=== PATIENT | female | born 1990 | race Caucasian/White ===

== ENCOUNTER → 2017-01-23 | Outpatient (CLI) | payer OTHER ==
--- NOTE | 2017-01-27 14:03 | HM ---
Patient was monitored for 24 hours. The baseline rhythm is sinus mechanism with normal conduction. The average rate 88 beats per minute, minimal is 61, maximum 131 beats per minute. Ventricular ectopic activity was present in the form or rate single PVC's. Supraventricular ectopic activity was present in the form of rare single PAC's symptoms are shortness of breath and sharp pain in the chest. Did not correlate with any dysrhythmia. CONCLUSION; 1. Sinus mechanism based on rhythm. 2. Rare ventricular ectopic activity. 3. Rare supraventricular ectopic activity. 4. Symptoms do not correlate with any dysrhythmia. MTDD
== END | disposition home or self-care (01) ==
LOC: RADECHMAIN 13:02
PROVIDERS: ATTEND Family Medicine
DX: I49.3 Ventricular premature depolarization (principal)
CPT/HCPCS: 93225; 93226

== ENCOUNTER 2017-06-28 07:13 | Emergency (ER) | payer OTHER ==
[2017-06-28] MEDS ORDERED: DEXAMETHASONE SOD PHOSPHATE 10 MG/ML 1 ML VIAL IM STA (07:40)
[2017-06-28] MEDS ORDERED: ALBUTEROL NEBULIZED 2.5 MG/3 ML INHALATION STA (07:40)
[2017-06-28] MEDS ORDERED: KETOROLAC 30 MG/ML 1 ML VIAL IM STA (07:40)
--- NOTE | 2017-06-28 07:44 | ED ---
General Adult HPI - General Chief complaint: ENT Stated complaint: Ear pain Time Seen by Provider: 06/28/17 07:31 Source: patient, RN notes reviewed Mode of arrival: ambulatory Limitations: no limitations - History of Present Illness Initial comments: 27-year-old female with past medical history of asthma presents for evaluation of sore throat, and left ear pain. Patient has had URI symptoms over the past week, over the past 24 hours she developed severe sore throat and left ear pain as well as pain with swallowing. 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 She states she has had no issues with this over the past 5 years. She also reports cough which is productive, and mild wheezing secondary to her asthma. Denies any abdominal pain nausea vomiting or diarrhea. Denies any dysuria. - Related Data Home Medications Medication Instructions Recorded Confirmed ALPRAZolam [Xanax] 1 mg PO BID 05/10/15 06/28/17 Dextroamphetamine/Amphetamine 20 mg PO TID 05/10/15 06/28/17 [Adderall] Albuterol Nebulized [Ventolin 2.5 mg INHALATION RT-Q4H PRN 06/28/17 06/28/17 Nebulized] Albuterol Nebulized [Ventolin 2.5 mg INHALATION RT-Q6H PRN 06/28/17 06/28/17 Nebulized] Cholecalciferol [Vitamin D3] 1,000 unit PO DAILY 06/28/17 06/28/17 Ranitidine HCl [Zantac] 150 mg PO DAILY PRN 06/28/17 06/28/17 Previous Rx's Medication Instructions Recorded Amoxic-Pot Clav 875-125Mg 1 tab PO Q12HR #20 tablet 06/28/17 [Augmentin 875-125] Ibuprofen [Motrin] 600 mg PO Q8HR PRN #24 tab 06/28/17 Allergies Allergy/AdvReac Type Severity Reaction Status Date / Time No Known Allergies Allergy Verified 06/28/17 07:50 Review of Systems ROS Statement: Those systems with pertinent positive or pertinent negative responses have been documented in the HPI. ROS Other: All systems not noted in ROS Statement are negative. Past Medical History Past Medical History: Asthma Additional Past Medical History / Comment(s): "juv. 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" History of Any Multi-Drug Resistant Organisms: None Reported Past Surgical History: Ear Surgery, Orthopedic Surgery Additional Past Surgical History / Comment(s): thumb surgery at age 12, ear surgery 2 years ago, right shoulder Past Anesthesia/Blood Transfusion Reactions: No Reported Reaction Past Psychological History: Anxiety Smoking Status: Current every day smoker Past Alcohol Use History: None Reported Past Drug Use History: None Reported - Past Family History Mother Family Medical History: Cancer General Exam Limitations: no limitations General appearance: alert, in no apparent distress Head exam: Present: atraumatic, normocephalic Eye exam: Present: normal appearance, PERRL ENT exam: Present: mucous membranes moist, normal external ear exam, other ( Pharyngeal erythema, symmetric tonsillar pillars, right tympanic membrane is opacified and bulging, left tympanic membrane erythematous with no cone of light.) Neck exam: Present: normal inspection, full ROM, lymphadenopathy. Absent: meningismus Respiratory exam: Present: wheezes. Absent: respiratory distress Cardiovascular Exam: Present: regular rate, normal rhythm GI/Abdominal exam: Present: soft. Absent: distended, tenderness Extremities exam: Present: normal inspection, normal capillary refill. Absent: pedal edema Back exam: Present: normal inspection, full ROM Neurological exam: Present: alert, oriented X3, CN II-XII intact. Absent: motor sensory deficit Psychiatric exam: Present: normal affect, normal mood Skin exam: Present: warm, dry, intact. Absent: cyanosis, diaphoretic Course Vital Signs 06/28/17 06/28/17 06/28/17 07:18 07:53 08:03 Temperature 97.6 F Pulse Rate 99 80 84 Respiratory 18 Rate Blood Pressure 123/91 O2 Sat by Pulse 98 Oximetry Medical Decision Making - Medical Decision Making 27-year-old female with URI symptoms and sore throat and left ear pain. On examination patient has an opacified and bulging right tympanic membrane with no symptoms and this year. On the left she has erythematous irregular contour to her tympanic membrane. She has had surgery to remove benign mass proximally 5 years ago. Patient has history of asthma and is wheezing on exam. She is given Decadron, Toradol, and albuterol in the emergency department. On reevaluation, she is feeling much better, pain improved, breathing improved. Rapid strep test is negative, influenza negative Chest x-ray negative for focal pneumonia Diagnosis: URI, asthma exacerbation, otitis media - Lab Data Lab Results 06/28/17 06/28/17 Range/Units 07:50 07:50 Influenza Type A RNA Not Detected (Not Detectd) Influenza Type B (PCR) Not Detected (Not Detectd) Group A Strep Rapid Negative (Negative) Disposition Clinical Impression: Acute viral pharyngitis, Otitis media, Asthma Disposition: HOME SELF-CARE Condition: Good Instructions: Earache (ED) Prescriptions: Amoxic-Pot Clav 875-125Mg [Augmentin 875-125] 1 tab PO Q12HR #20 tablet Ibuprofen [Motrin] 600 mg PO Q8HR PRN #24 tab PRN Reason: Pain Referrals: Alfa Ford III, MD [Primary Care Provider] - 1-2 days
--- NOTE | 2017-06-28 08:44 | XR ---
EXAMINATION TYPE: XR chest 2V DATE OF EXAM: 06/28/2017 COMPARISON: 05/10/2015 INDICATION: Pain TECHNIQUE: Frontal and lateral views of the chest are obtained. FINDINGS: The heart size is normal. The pulmonary vasculature is normal. The lungs are clear. IMPRESSION: 1. No acute pulmonary process.
[2017-06-28 16:28] VITALS: BP 132/76; PULSE 84; RESP 18; TEMP 98.1
== END 2017-06-28 08:53 | disposition home or self-care (01) ==
LOC: EC 07:13
DX: J02.9 Acute pharyngitis, unspecified (principal); J45.909 Unspecified asthma, uncomplicated; H66.92 Otitis media, unspecified, left ear; F41.9 Anxiety disorder, unspecified; F17.200 Nicotine dependence, unspecified, uncomplicated; Z79.899 Other long term (current) drug therapy; Z86.018 Personal history of other benign neoplasm
CPT/HCPCS: 99283 ×2; 96372 ×3; 94640; 87081; 87430; 87502; 71046; J1100; J1885

== ENCOUNTER 2018-09-08 21:26 | Emergency (ER) | payer OTHER ==
[2018-09-08 21:32] VITALS: TEMP 98.9
[2018-09-08] MEDS ORDERED: SULFAMETH-TMP DS STARTER PACK 2 TAB BTL PO STA (22:33)
[2018-09-08] MEDS ORDERED: LIDOCAINE 1% INJ 10MG/ML (20 ML MDV) SQ ONE (22:33)
--- NOTE | 2018-09-08 22:36 | ED ---
Skin/Abscess/FB HPI - General Chief complaint: Skin/Abscess/Foreign Body Stated complaint: Abscess Time Seen by Provider: 09/08/18 21:55 Source: patient, RN notes reviewed, old records reviewed Mode of arrival: ambulatory Limitations: no limitations - History of Present Illness Initial comments: Patient is a 28 year old female with history of hydranitis suppuritiva, with complaint of L breast abscess and R axilla abscess for one week. She usually pops them on her own. She denies any other complaints. Denies fevers or chills. - Related Data Home Medications Medication Instructions Recorded Confirmed ALPRAZolam [Xanax] 1 mg PO BID 05/10/15 06/28/17 Dextroamphetamine/Amphetamine 20 mg PO TID 05/10/15 06/28/17 [Adderall] Albuterol Nebulized [Ventolin 2.5 mg INHALATION RT-Q4H PRN 06/28/17 06/28/17 Nebulized] Albuterol Nebulized [Ventolin 2.5 mg INHALATION RT-Q6H PRN 06/28/17 06/28/17 Nebulized] Cholecalciferol [Vitamin D3] 1,000 unit PO DAILY 06/28/17 06/28/17 Ranitidine HCl [Zantac] 150 mg PO DAILY PRN 06/28/17 06/28/17 Previous Rx's Medication Instructions Recorded Amoxic-Pot Clav 875-125Mg 1 tab PO Q12HR #20 tablet 06/28/17 [Augmentin 875-125] Ibuprofen [Motrin] 600 mg PO Q8HR PRN #24 tab 06/28/17 Sulfamethox-Tmp 800-160Mg [Bactrim 2 tab PO Q12HR #40 tab 09/08/18 DS 800-160 mg] Allergies Allergy/AdvReac Type Severity Reaction Status Date / Time No Known Allergies Allergy Verified 09/08/18 21:32 Review of Systems ROS Statement: Those systems with pertinent positive or pertinent negative responses have been documented in the HPI. ROS Other: All systems not noted in ROS Statement are negative. Past Medical History Past Medical History: Asthma Additional Past Medical History / Comment(s): "juv. 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" History of Any Multi-Drug Resistant Organisms: None Reported Past Surgical History: Ear Surgery, Orthopedic Surgery Additional Past Surgical History / Comment(s): thumb surgery at age 12, ear surgery 2 years ago, right shoulder Past Anesthesia/Blood Transfusion Reactions: No Reported Reaction Past Psychological History: Anxiety Smoking Status: Current every day smoker Past Alcohol Use History: None Reported Past Drug Use History: Marijuana - Past Family History Mother Family Medical History: Cancer General Exam - General Exam Comments Initial Comments: 28 year old female, no distress. Limitations: no limitations General appearance: alert, in no apparent distress Head exam: Present: atraumatic, normocephalic, normal inspection Eye exam: Present: normal appearance, PERRL, EOMI. Absent: scleral icterus, conjunctival injection, periorbital swelling ENT exam: Present: normal exam, mucous membranes moist Neck exam: Present: normal inspection. Absent: tenderness, meningismus, lymphadenopathy Respiratory exam: Present: normal lung sounds bilaterally. Absent: respiratory distress, wheezes, rales, rhonchi, stridor Cardiovascular Exam: Present: regular rate, normal rhythm, normal heart sounds. Absent: systolic murmur, diastolic murmur, rubs, gallop, clicks Neurological exam: Present: alert, oriented X3, CN II-XII intact Psychiatric exam: Present: normal affect, normal mood Skin exam: Present: warm, dry, intact, normal color, rash (Lbreast abscess measuring 3 cm. Surrounding erythema . R axilla 2cm abscess. ) Course Vital Signs 09/08/18 09/08/18 21:30 23:24 Temperature 98.9 F Pulse Rate 115 H 98 Respiratory 20 18 Rate Blood Pressure 134/80 129/89 O2 Sat by Pulse 97 98 Oximetry Procedures - Incision & Drainage Indication: abscess Site: other (L breast) Size (cm): 3 Anesthetic Used: lidocaine 1% Amount (mLs): 4 I&D Cleaning Method: Chloroprep Sterile Field Used?: Yes Scalpel Used: #11 I&D Drainage Obtained: Pus, Blood Culture Obtained?: Yes Patient Tolerated Procedure: well, no complications Medical Decision Making - Medical Decision Making Pt is a 28 year old female with hydranitis suppuritiva with left breast and R axilla abscess with surrounding cellulitis. Patient had incision and drainage, culture obtained. Patient tolerated procedule well. Will DC with Rx for Bactrim DS. Discussed dermatology follow up. Disposition Clinical Impression: Left breast abscess, Hydradenitis Disposition: HOME SELF-CARE Condition: Good Instructions (If sedation given, give patient instructions): Abscess Incision and Drainage (ED) Additional Instructions: Patient is advised to take antibiotic as prescribed. Leave the packing in the wound for 48 hours. Return to emergency department if any alarming signs or symptoms occur. Prescriptions: Sulfamethox-Tmp 800-160Mg [Bactrim DS 800-160 mg] 2 tab PO Q12HR #40 tab Is patient prescribed a controlled substance at d/c from ED?: No Referrals: Alfa Ford III, MD [Primary Care Provider] - 1-2 days Time of Disposition: 22:35
[2018-09-08 23:25] VITALS: BP 129/89; PULSE 98; RESP 18
== END 2018-09-08 23:24 | disposition home or self-care (01) ==
LOC: EC 21:26
DX: N61.1 Abscess of the breast and nipple (principal); L73.2 Hidradenitis suppurativa; L02.411 Cutaneous abscess of right axilla; L03.111 Cellulitis of right axilla; F17.200 Nicotine dependence, unspecified, uncomplicated; F41.9 Anxiety disorder, unspecified; J45.909 Unspecified asthma, uncomplicated; Z79.899 Other long term (current) drug therapy
CPT/HCPCS: 87070; 87205; 99283; 10160; J2001

== ENCOUNTER → 2018-10-28 | Outpatient (CLI) | payer OTHER ==
--- NOTE | 2018-10-28 10:53 | FL ---
ESOPHOGRAM. HISTORY: Dysphagia Esophagram was performed per the air contrast technique. The patient swallowed barium and effervesce nt crystals without difficulty or delay. Esophageal peristalsis and motility appear to be within normal limits. There is no evidence for filling defect, mass or diverticulum. No hiatal hernia seen. Subsequently single contrast cervical esophagram was performed which fails demonstrate evidence for a spiration penetration or mass. Cervical spine demonstrates reversal of the normal cervical lordosis. IMPRESSION: 1. Unremarkable evaluation of the esophagus. 2. Reversal of the normal cervical lordosis may reflect muscle spasticity.
== END | disposition home or self-care (01) ==
LOC: RADFLWHC 10:04
PROVIDERS: ATTEND Family Medicine
DX: R13.10 Dysphagia, unspecified (principal)
CPT/HCPCS: 74220

== ENCOUNTER 2018-11-07 23:45 | Emergency (ER) | payer OTHER ==
[2018-11-07 23:54] VITALS: BP 118/77; PULSE 96; RESP 20
[2018-11-08] MEDS ORDERED: LIDOCAINE 1% INJ 10MG/ML (20 ML MDV) SQ STA (00:12)
--- NOTE | 2018-11-08 00:14 | ED ---
General Adult HPI - General Chief complaint: Skin/Abscess/Foreign Body Stated complaint: Abscess L Arm Time Seen by Provider: 11/08/18 00:00 Source: patient, RN notes reviewed, old records reviewed Mode of arrival: ambulatory Limitations: no limitations - History of Present Illness Initial comments: 28-year-old female patient past medical history of hidradenitis suppurvia presents to ED with abscess to left axilla. Patient reports that this is an ongoing for approximately 2 days. Patient denies any constitutional symptoms. Denies any nausea vomiting diarrhea, fevers or chills. Patient has a chest pain shortness with abdominal pain. Patient states that she is not . Denies any other complaints at this time. Systemic: Pt denies fatigue, myalgia, fever/chills, rash. Pt denies weakness, night sweats, weight loss. Neuro: Pt denies headache, visual disturbances, syncope or pre-syncope. HEENT: Pt denies ocular discharge or irritation, otalgia, rhinorrhea, pharyngitis or notable lymphadenopathy. Cardiopulmonary: Pt denies chest pain, SOB, heart palpitations, dyspnea on exertion. Abdominal/GI: Pt denies abdominal pain, n/v/d. : Pt denies dysuria, burning w/ urination, frequency/urgency. Denies new onset urinary or bowel incontinence. MSK: Pt denies myalgia, loss of strength or function in extremities. Neuro: Pt denies new onset weakness, paresthesias. - Related Data Home Medications Medication Instructions Recorded Confirmed ALPRAZolam [Xanax] 1 mg PO BID 05/10/15 06/28/17 Dextroamphetamine/Amphetamine 20 mg PO TID 05/10/15 06/28/17 [Adderall] Albuterol Nebulized [Ventolin 2.5 mg INHALATION RT-Q4H PRN 06/28/17 06/28/17 Nebulized] Albuterol Nebulized [Ventolin 2.5 mg INHALATION RT-Q6H PRN 06/28/17 06/28/17 Nebulized] Cholecalciferol [Vitamin D3] 1,000 unit PO DAILY 06/28/17 06/28/17 Ranitidine HCl [Zantac] 150 mg PO DAILY PRN 06/28/17 06/28/17 Previous Rx's Medication Instructions Recorded Amoxic-Pot Clav 875-125Mg 1 tab PO Q12HR #20 tablet 06/28/17 [Augmentin 875-125] Ibuprofen [Motrin] 600 mg PO Q8HR PRN #24 tab 06/28/17 Sulfamethox-Tmp 800-160Mg [Bactrim 2 tab PO Q12HR #40 tab 09/08/18 DS 800-160 mg] Sulfamethox-Tmp 800-160Mg [Bactrim 1 tab PO Q12HR #20 tab 11/08/18 DS 800-160 mg] Allergies Allergy/AdvReac Type Severity Reaction Status Date / Time No Known Allergies Allergy Verified 11/07/18 23:53 Review of Systems ROS Statement: Those systems with pertinent positive or pertinent negative responses have been documented in the HPI. ROS Other: All systems not noted in ROS Statement are negative. Past Medical History Past Medical History: Asthma Additional Past Medical History / Comment(s): "juv. 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" HS. History of Any Multi-Drug Resistant Organisms: None Reported Past Surgical History: Ear Surgery, Orthopedic Surgery Additional Past Surgical History / Comment(s): thumb surgery at age 12, ear surgery 2 years ago, right shoulder Past Anesthesia/Blood Transfusion Reactions: No Reported Reaction Past Psychological History: Anxiety Smoking Status: Current every day smoker Past Alcohol Use History: None Reported Past Drug Use History: Marijuana - Past Family History Mother Family Medical History: Cancer General Exam - General Exam Comments Initial Comments: Constitutional: NAD, AOX3, Pt has pleasant affect. HEENT: NC/AT, trachea midline, neck supple, no lymphadenopathy. Posterior pharynx non erythematous, without exudates. External ears appear normal, without discharge. Mucous membranes moist. Eyes PERRLA, EOM intact. There is no scleral icterus. No pallor noted. Cardiopulmonary: RRR, no murmurs, rubs or gallops, no JVD noted. Lungs CTAB in anterior and posterior hsu. No peripheral edema. Abdominal exam: Abdomen soft and non-distended. Abdomen non-tender to palpation in all 4 quadrants. Bowel sounds active in LLQ. No hepatosplenomegaly. No ecchymosis Neuro: CN II-XII grossly intact. No nuchal rigidity. MSK: 2 x 2 centimeter abscess noted left axilla, mildly erythematous. No streaking. All motor functions. Incision drainage obtained mild amount of pus and blood. No posterior calf tenderness bilaterally, homans sign negative bilaterally. Posterior tibialis and radial pulse +2 bilaterally. Sensation intact in upper and lower extremities. Full active ROM in upper and lower extremities, 5/5 stregnth. Limitations: no limitations Course Vital Signs 11/07/18 11/08/18 23:51 00:31 Temperature 99.5 F 97.4 F L Pulse Rate 96 Respiratory 20 Rate Blood Pressure 118/77 O2 Sat by Pulse 99 Oximetry Medical Decision Making - Medical Decision Making 28-year-old female patient past medical history of hidradenitis suppurvia presents to ED with abscess to left axilla. Patient reports that this is an ongoing for approximately 2 days. Patient denies any constitutional symptoms. Denies any nausea vomiting diarrhea, fevers or chills. Patient has a chest pain shortness with abdominal pain. Patient states that she is not . Denies any other complaints at this time. Physical exam displayed: 2 x 2 centimeter abscess noted left axilla, mildly erythematous. No streaking. Mild amount of fluctuance. Incision drainage obtained mild amount of pus and blood. Culture obtained. Patient discharged with Bactrim. Patient to follow up with primary care provider in 2 days. Patient return to ER if condition worsens. Case discussed with Dr. Ontiveros. Disposition Clinical Impression: Abscess Disposition: HOME SELF-CARE Condition: Stable Instructions (If sedation given, give patient instructions): Abscess (ED) Additional Instructions: Patient to adhere to previously discussed treatment plan and will take medication(s) as directed. Patient to follow up with PCP in 1-2 days. Patient to return to ED if symptoms do not improve. Take medication as prescribed. Follow up with primary care provider 1-2 days. Return to ER if condition worsens. Prescriptions: Sulfamethox-Tmp 800-160Mg [Bactrim DS 800-160 mg] 1 tab PO Q12HR #20 tab Is patient prescribed a controlled substance at d/c from ED?: No Referrals: Alfa Ford III, MD [Primary Care Provider] - 1-2 days
[2018-11-08 00:31] VITALS: TEMP 97.4
--- NOTE | 2018-11-09 01:36 | CDI ---
Documentation Clarification OP Dear Dino FORREST, PAC, Please provide the addendum for the Incision & drianage procedure. Thank you, Shannon Mo User Experience Researcher If you have any question, Please contact manager content at [phone] [facility]
--- NOTE | 2018-11-14 14:17 | ED ---
Disposition Clinical Impression: Abscess Disposition: HOME SELF-CARE Condition: Stable Instructions (If sedation given, give patient instructions): Abscess (ED) Additional Instructions: Patient to adhere to previously discussed treatment plan and will take medication(s) as directed. Patient to follow up with PCP in 1-2 days. Patient to return to ED if symptoms do not improve. Take medication as prescribed. Follow up with primary care provider 1-2 days. Return to ER if condition worsens. Prescriptions: Sulfamethox-Tmp 800-160Mg [Bactrim DS 800-160 mg] 1 tab PO Q12HR #20 tab Is patient prescribed a controlled substance at d/c from ED?: No Referrals: Alfa Ford III, MD [Primary Care Provider] - 1-2 days Procedures - Incision & Drainage Consent Obtained: verbal consent Indication: abscess L axillae Site: other (L axillae) Size (cm): 2 Anesthetic Used: lidocaine 1% Amount (mLs): 2 I&D Cleaning Method: Chloroprep, Alcohol Wipe Scalpel Used: #11 I&D Drainage Obtained: Pus, Blood Culture Obtained?: Yes Patient Tolerated Procedure: well
== END 2018-11-08 01:03 | disposition home or self-care (01) ==
LOC: EC 23:45
DX: L02.412 Cutaneous abscess of left axilla (principal); J45.909 Unspecified asthma, uncomplicated; F41.9 Anxiety disorder, unspecified; F17.200 Nicotine dependence, unspecified, uncomplicated; Z79.899 Other long term (current) drug therapy
CPT/HCPCS: 87070; 87205; 87077; 87186; 99283; 10060; J2001

== ENCOUNTER 2019-05-30 00:13 | Emergency (ER) | payer OTHER ==
[2019-05-30 00:19] VITALS: BP 136/88; PULSE 101; RESP 20; TEMP 98.3
--- NOTE | 2019-05-30 00:29 | ED ---
Skin/Abscess/FB HPI - General Chief complaint: Skin/Abscess/Foreign Body Stated complaint: Thigh Abscess Time Seen by Provider: 05/30/19 00:20 Source: patient, family Mode of arrival: ambulatory Limitations: no limitations - History of Present Illness Initial comments: 29-year-old female patient presents to the emergency department today for evaluation of right labial abscess. Patient has history of hidradenitis suppurativa and gets abscesses frequently. Patient states that this abscess developed a few days ago. States that she did get minimal drainage at this morning. States it has decreased in size. Patient states she was mostly worried due to the location of the abscess. She denies fever or chills. Denies significant pain to the area. Denies any nausea or vomiting. She has been taking warm baths with Epsom salts which seems to be helping. Patient denies any recent rash, shortness of breath, chest pain, abdominal pain, diarrhea, co nstipation, back pain, numbness, tingling, dizziness, weakness, hematuria, dysuria, urinary urgency, urinary frequency, headache, visual changes, or any other complaints. - Related Data Home Medications Medication Instructions Recorded Confirmed ALPRAZolam [Xanax] 1 mg PO BID 05/10/15 06/28/17 Dextroamphetamine/Amphetamine 20 mg PO TID 05/10/15 06/28/17 [Adderall] Albuterol Nebulized [Ventolin 2.5 mg INHALATION RT-Q4H PRN 06/28/17 06/28/17 Nebulized] Albuterol Nebulized [Ventolin 2.5 mg INHALATION RT-Q6H PRN 06/28/17 06/28/17 Nebulized] Cholecalciferol [Vitamin D3] 1,000 unit PO DAILY 06/28/17 06/28/17 Ranitidine HCl [Zantac] 150 mg PO DAILY PRN 06/28/17 06/28/17 Previous Rx's Medication Instructions Recorded Amoxic-Pot Clav 875-125Mg 1 tab PO Q12HR #20 tablet 06/28/17 [Augmentin 875-125] Ibuprofen [Motrin] 600 mg PO Q8HR PRN #24 tab 06/28/17 Sulfamethox-Tmp 800-160Mg [Bactrim 2 tab PO Q12HR #40 tab 09/08/18 DS 800-160 mg] Sulfamethox-Tmp 800-160Mg [Bactrim 1 tab PO Q12HR #20 tab 11/08/18 DS 800-160 mg] Sulfamethoxazole/Trimethoprim 1 each PO BID #20 tablet 05/30/19 [Bactrim DS 800-160 mg] Allergies Allergy/AdvReac Type Severity Reaction Status Date / Time No Known Allergies Allergy Verified 05/30/19 00:19 Review of Systems ROS Statement: Those systems with pertinent positive or pertinent negative responses have been documented in the HPI. ROS Other: All systems not noted in ROS Statement are negative. Past Medical History Past Medical History: Asthma Additional Past Medical History / Comment(s): 12-18" HS. History of Any Multi-Drug Resistant Organisms: None Reported Past Surgical History: Ear Surgery, Orthopedic Surgery Additional Past Surgical History / Comment(s): thumb surgery at age 12, ear surgery 2 years ago Past Anesthesia/Blood Transfusion Reactions: No Reported Reaction Past Psychological History: ADD/ADHD, Anxiety Smoking Status: Current every day smoker Past Alcohol Use History: None Reported Past Drug Use History: Marijuana - Past Family History Mother Family Medical History: Cancer General Exam Limitations: no limitations General appearance: alert, in no apparent distress, other (This is a well- developed, well-nourished adult female patient in no acute distress. Vital signs upon presentation are temperature 98.3F, pulse 101, respirations 20, blood pressure 136/88, pulse ox 97% on room air.) Respiratory exam: Present: normal lung sounds bilaterally. Absent: respiratory distress, wheezes, rales, rhonchi, stridor Cardiovascular Exam: Present: regular rate, normal rhythm, normal heart sounds. Absent: systolic murmur, diastolic murmur, rubs, gallop, clicks External exam: Present: other (There is less than 1 cm abscess noted to the right labia. This is indurated with no fluctuance. No surrounding erythema. No current drainage.). Absent: normal external exam Course Vital Signs 05/30/19 00:15 Temperature 98.3 F Pulse Rate 101 H Respiratory 20 Rate Blood Pressure 136/88 O2 Sat by Pulse 97 Oximetry Medical Decision Making - Medical Decision Making 29-year-old female patient with history of hidradenitis suppurativa presents to the emergency department today for evaluation of right labial abscess. Physical examination did reveal a less than 1 cm abscess to the right labia. This is indurated with no fluctuance. No current drainage. There is no surrounding erythema or evidence for cellulitis. Patient is nontender to the area. Patient was mostly concerned related to the location of the abscess. She will be discharged with instructions to continue applying warm compresses and taking warm baths. I will prescribe Bactrim that she is to use if the area seems to becoming larger or more red. She is instructed to follow-up with her primary care physician for recheck in 1-2 days. Return parameters were discussed in detail. She verbalizes understanding and agrees with this plan. Disposition Clinical Impression: Labial abscess Disposition: HOME SELF-CARE Condition: Good Instructions (If sedation given, give patient instructions): Abscess (ED) Additional Instructions: Continue applying warm compresses or taking warm sits past 15 minutes at a time at least 4 times daily. Follow-up with your primary care physician for recheck in 1-2 days. Start antibiotic if area seems to worsen. Return to the emergency department immediately for any new, worsening, or concerning symptoms Prescriptions: Sulfamethoxazole/Trimethoprim [Bactrim DS 800-160 mg] 1 each PO BID #20 tablet Is patient prescribed a controlled substance at d/c from ED?: No Referrals: Alfa Ford III, MD [Primary Care Provider] - 1-2 days Time of Disposition: 00:29
== END 2019-05-30 00:34 | disposition home or self-care (01) ==
LOC: EC 00:13
DX: N76.4 Abscess of vulva (principal); J45.909 Unspecified asthma, uncomplicated; F41.9 Anxiety disorder, unspecified; F90.9 Attention-deficit hyperactivity disorder, unspecified type; F17.200 Nicotine dependence, unspecified, uncomplicated; Z79.899 Other long term (current) drug therapy; Z87.2 Personal history of diseases of the skin and subcutaneous tissue
CPT/HCPCS: 99283

== ENCOUNTER 2019-06-19 14:37 | Emergency (ER) | payer OTHER ==
[2019-06-19 14:52] VITALS: BP 149/97; PULSE 103; RESP 20; TEMP 97.2
--- NOTE | 2019-06-19 15:23 | ED ---
General Adult HPI - General Chief complaint: Neuro Symptoms/Deficit Stated complaint: Facial numbness Time Seen by Provider: 06/19/19 14:56 Source: patient Mode of arrival: wheelchair Limitations: no limitations - History of Present Illness Initial comments: Dictation was produced using [employer] dictation software. please excuse any grammatical, word or spelling errors. Chief Complaint: 29-year-old female presents with left sided facial numbness. History of Present Illness: 29 old female she presents today with left-sided facial numbness. Patient states her symptoms began 2 days ago. She reports that she has weakness of the left facial muscles as well. She states that the numbness is of her entire left face. She also feels some numbness in the left half of her mouth. Patient is concerned about a stroke came to the emergency department for evaluation. She has history of ear surgeries as well. The ROS documented in this emergency department record has been reviewed and confirmed by me. Those systems with pertinent positive or negative responses have been documented in the HPI. All other systems are other negative and/or noncontributory. PHYSICAL EXAM: General Impression: Alert and oriented x3, not in acute distress HEENT: Normocephalic atraumatic, extra-ocular movements intact, pupils equal and reactive to light bilaterally, mucous membranes moist. Cardiovascular: Heart regular rate and rhythm, S1&S2 audible, no murmurs, rubs or gallops Chest: Lungs clear to auscultation bilaterally, no rhonchi, no wheeze, no rales Abdomen: Bowel sounds present, abdomen soft, non-tender, non-distended, no organomegaly Musculoskeletal: Pulses present and equal in all extremities, no peripheral edema Motor: no focal deficits noted Neurological: Weakness to the periorbital muscles. Left-sided facial droop, mild numbness to light touch of the left face Skin: Intact with no visualized rashes Psych: Normal affect and mood ED course: 29 yo presents with clinical presentation consistent with Morales palsy. Upon arrival are within acceptable limits. - Related Data Home Medications Medication Instructions Recorded Confirmed ALPRAZolam [Xanax] 1 mg PO BID 05/10/15 06/28/17 Dextroamphetamine/Amphetamine 20 mg PO TID 05/10/15 06/28/17 [Adderall] Albuterol Nebulized [Ventolin 2.5 mg INHALATION RT-Q4H PRN 06/28/17 06/28/17 Nebulized] Albuterol Nebulized [Ventolin 2.5 mg INHALATION RT-Q6H PRN 06/28/17 06/28/17 Nebulized] Cholecalciferol [Vitamin D3] 1,000 unit PO DAILY 06/28/17 06/28/17 Ranitidine HCl [Zantac] 150 mg PO DAILY PRN 06/28/17 06/28/17 Previous Rx's Medication Instructions Recorded Amoxic-Pot Clav 875-125Mg 1 tab PO Q12HR #20 tablet 06/28/17 [Augmentin 875-125] Ibuprofen [Motrin] 600 mg PO Q8HR PRN #24 tab 06/28/17 Sulfamethox-Tmp 800-160Mg [Bactrim 2 tab PO Q12HR #40 tab 09/08/18 DS 800-160 mg] Sulfamethox-Tmp 800-160Mg [Bactrim 1 tab PO Q12HR #20 tab 11/08/18 DS 800-160 mg] Sulfamethoxazole/Trimethoprim 1 each PO BID #20 tablet 05/30/19 [Bactrim DS 800-160 mg] Artificial Tears Ointment 1 gm OPHTHALMIC DAILY #1 oint...g. 06/19/19 [Lubrifresh Pm Ointment] Artificial Tears-Hypromellose 1 drops LEFT EYE QID #1 bottle 06/19/19 [Artificial Tear Drops] predniSONE 60 mg PO DAILY 7 Days #21 tab 06/19/19 valACYclovir HCL [Valtrex] 1,000 mg PO TID 7 Days #7 tablet 06/19/19 Allergies Allergy/AdvReac Type Severity Reaction Status Date / Time No Known Allergies Allergy Verified 05/30/19 00:19 Review of Systems ROS Statement: Those systems with pertinent positive or pertinent negative responses have been documented in the HPI. ROS Other: All systems not noted in ROS Statement are negative. 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 History of Any Multi-Drug Resistant Organisms: None Reported Past Surgical History: Ear Surgery, Orthopedic Surgery Additional Past Surgical History / Comment(s): thumb surgery Past Anesthesia/Blood Transfusion Reactions: No Reported Reaction Past Psychological History: ADD/ADHD, Anxiety Smoking Status: Current every day smoker Past Alcohol Use History: None Reported Past Drug Use History: Marijuana - Past Family History Mother Family Medical History: Cancer General Exam Limitations: no limitations Course Vital Signs 06/19/19 14:47 Temperature 97.2 F L Pulse Rate 103 H Respiratory 20 Rate Blood Pressure 149/97 O2 Sat by Pulse 99 Oximetry Medical Decision Making - Lab Data Result diagrams: 06/19/19 16:00 06/19/19 16:00 Lab Results 06/19/19 06/19/19 Range/Units 16:00 16:00 WBC 10.8 H (3.8-10.6) k/uL RBC 5.02 (3.80-5.40) m/uL Hgb 14.7 (11.4-16.0) gm/dL Hct 44.0 (34.0-46.0) % MCV 87.7 (80.0-100.0) fL MCH 29.3 (25.0-35.0) pg MCHC 33.4 (31.0-37.0) g/dL RDW 13.4 (11.5-15.5) % Plt Count 158 (150-450) k/uL Neutrophils % 67 % Lymphocytes % 26 % Monocytes % 3 % Eosinophils % 2 % Basophils % 1 % Neutrophils # 7.2 (1.3-7.7) k/uL Lymphocytes # 2.8 (1.0-4.8) k/uL Monocytes # 0.3 (0-1.0) k/uL Eosinophils # 0.2 (0-0.7) k/uL Basophils # 0.1 (0-0.2) k/uL Sodium 138 (137-145) mmol/L Potassium 3.9 (3.5-5.1) mmol/L Chloride 109 H (98-107) mmol/L Carbon Dioxide 20 L (22-30) mmol/L Anion Gap 9 mmol/L BUN 10 (7-17) mg/dL Creatinine 0.63 (0.52-1.04) mg/dL Est GFR (CKD-EPI)AfAm >90 (>60 ml/min/1.73 sqM) Est GFR (CKD-EPI)NonAf >90 (>60 ml/min/1.73 sqM) Glucose 111 H (74-99) mg/dL Calcium 9.2 (8.4-10.2) mg/dL Magnesium 2.0 (1.6-2.3) mg/dL Disposition Clinical Impression: Morales palsy Disposition: HOME SELF-CARE Condition: Good Instructions (If sedation given, give patient instructions): Morales Palsy (ED) Additional Instructions: 1. protect eye a. eye shield b. eye drops c. eye ointment and tape eye shut at night before bed 2. antivirals 3. steroids Prescriptions: Artificial Tears-Hypromellose [Artificial Tear Drops] 1 drops LEFT EYE QID #1 isaac ttle Artificial Tears Ointment [Lubrifresh Pm Ointment] 1 gm OPHTHALMIC DAILY #1 oint...g. predniSONE 60 mg PO DAILY 7 Days #21 tab valACYclovir HCL [Valtrex] 1,000 mg PO TID 7 Days #7 tablet Is patient prescribed a controlled substance at d/c from ED?: No Referrals: Alfa Ford III, MD [Primary Care Provider] - 1-2 days Time of Disposition: 16:32
[2019-06-19 16:08] LABS: Basophils # (A) 0.1 k/uL (0-0.2); Basophils % (A) 1 %; Eosinophils # (A) 0.2 k/uL (0-0.7); Eosinophils % (A) 2 %; HGB 14.7 gm/dL (11.4-16.0); Lymphocytes # (A) 2.8 k/uL (1.0-4.8); Lymphocytes % (A) 26 %; MCH 29.3 pg (25.0-35.0); MCHC 33.4 g/dL (31.0-37.0); MCV 87.7 fL (80.0-100.0); Mean Platelet Volume 9.3; Monocytes # (A) 0.3 k/uL (0-1.0); Monocytes % (A) 3 %; Neutrophils # (A) 7.2 k/uL (1.3-7.7); Neutrophils % (A) 67 %; Platelet Count 158 k/uL (150-450); RBC 5.02 m/uL (3.80-5.40); RDW 13.4 % (11.5-15.5); WBC 10.8 k/uL (3.8-10.6)
[2019-06-19 16:19] LABS: African American GFR (CKD) >90 (>60 ml/min/1.73 sqM); Anion Gap 9 mmol/L; Blood Urea Nitrogen 10 mg/dL (7-17); Calcium 9.2 mg/dL (8.4-10.2); Carbon Dioxide 20 mmol/L (22-30); Chloride 109 mmol/L (98-107); Glucose 111 mg/dL (74-99); Non-African American GFR(CKD) >90 (>60 ml/min/1.73 sqM); Potassium 3.9 mmol/L (3.5-5.1); Sodium 138 mmol/L (137-145)
== END 2019-06-19 16:50 | disposition home or self-care (01) ==
LOC: EC 14:37
DX: G51.0 Bell's palsy (principal); J45.909 Unspecified asthma, uncomplicated; F17.200 Nicotine dependence, unspecified, uncomplicated; Z79.899 Other long term (current) drug therapy
CPT/HCPCS: 36415; 80048; 83735; 85025; 99284

== ENCOUNTER 2020-06-10 16:43 | Emergency (ER) | payer OTHER ==
[2020-06-10 16:48] VITALS: TEMP 99
--- NOTE | 2020-06-10 17:26 | XR ---
EXAMINATION TYPE: XR shoulder complete LT DATE OF EXAM: 06/10/2020 COMPARISON: NONE HISTORY: Shoulder pain TECHNIQUE: 3 views FINDINGS: The glenohumeral joint is intact. I see no fracture nor dislocation. There are no pathologi c calcifications. IMPRESSION: Negative left shoulder exam.
--- NOTE | 2020-06-10 17:27 | XR ---
EXAMINATION TYPE: XR humerus LT DATE OF EXAM: 06/10/2020 COMPARISON: NONE HISTORY: Shoulder pain TECHNIQUE: 3 views FINDINGS: I see no fracture nor dislocation. Shoulder joint and elbow joint appear intact. There are no pathologic calcifications. IMPRESSION: Negative left humerus exam.
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
[2020-06-10 18:13] VITALS: BP 132/82; PULSE 112; RESP 20
== END 2020-06-10 18:13 | disposition home or self-care (01) ==
LOC: EC 16:43
DX: M25.512 Pain in left shoulder (principal); F17.200 Nicotine dependence, unspecified, uncomplicated; J45.909 Unspecified asthma, uncomplicated; F41.9 Anxiety disorder, unspecified; F90.9 Attention-deficit hyperactivity disorder, unspecified type; Z79.899 Other long term (current) drug therapy; X50.9XXA Other and unspecified overexertion or strenuous movements or postures, initial encounter
CPT/HCPCS: 99283

== ENCOUNTER 2021-01-09 04:20 | Emergency (ER) | payer OTHER ==
[2021-01-09 04:26] VITALS: BP 144/92; PULSE 92; RESP 18; TEMP 98
[2021-01-09] MEDS ORDERED: SULFAMETHOX-TMP 800-160MG 1 EACH TAB PO STA (04:42)
[2021-01-09] MEDS ORDERED: LIDOCAINE/EPINEPHR/TETRACAINE 5 ML BOTTLE TOPICAL STA (04:42)
[2021-01-09] MEDS ORDERED: CEPHALEXIN 500 MG CAP PO STA (04:42)
[2021-01-09] MEDS ORDERED: CEPHALEXIN 500MG STARTER PACK 4 CAP BTL PO STA (04:42)
[2021-01-09] MEDS ORDERED: SULFAMETH-TMP DS STARTER PACK 2 TAB BTL PO STA (04:42)
[2021-01-09] MEDS ORDERED: ACET/COD 300 MG/30 MG STARTER PACK 6 TAB BTL PO STA (04:44)
[2021-01-09] MEDS ORDERED: Acetaminophen-Codeine 300-30mg TAB PO STA (04:44)
--- NOTE | 2021-01-09 04:44 | ED ---
Skin/Abscess/FB HPI - General Chief complaint: Skin/Abscess/Foreign Body Stated complaint: Abscess Time Seen by Provider: 01/09/21 04:22 Source: patient, RN notes reviewed, old records reviewed Mode of arrival: ambulatory Limitations: no limitations - History of Present Illness Initial comments: This is a 30-year-old female DF for evaluation patient Dese for evaluation regards to severe pain abscess pain. Patient has history of hidradenitis T the and recurrent abscesses. Patient states that underneath both breasts she has had significant swelling which is now coming to a head, there are areas and abscess surrounding cellulitis and pain. No drainage from either area at this time MD complaint: abscess/boil (2) his anterior lower abdomen) -: week(s) Tetanus Up to Date: yes Location: generalized (Patient does have multiple areas of abscess around body) Severity: moderate Severity scale (1-10): 5 Quality: stabbing Consistency: constant Improves with: none Worsens with: none Context: none Associated symptoms: denies other symptoms Treatments Prior to Arrival: none - Related Data Home Medications Medication Instructions Recorded Confirmed ALPRAZolam [Xanax] 1 mg PO BID 05/10/15 06/28/17 Dextroamphetamine/Amphetamine 20 mg PO TID 05/10/15 06/28/17 [Adderall] Albuterol Nebulized [Ventolin 2.5 mg INHALATION RT-Q4H PRN 06/28/17 06/28/17 Nebulized] Albuterol Nebulized [Ventolin 2.5 mg INHALATION RT-Q6H PRN 06/28/17 06/28/17 Nebulized] Cholecalciferol [Vitamin D3] 1,000 unit PO DAILY 06/28/17 06/28/17 Ranitidine HCl [Zantac] 150 mg PO DAILY PRN 06/28/17 06/28/17 Previous Rx's Medication Instructions Recorded Amoxic-Pot Clav 875-125Mg 1 tab PO Q12HR #20 tablet 06/28/17 [Augmentin 875-125] Ibuprofen [Motrin] 600 mg PO Q8HR PRN #24 tab 06/28/17 Sulfamethox-Tmp 800-160Mg [Bactrim 2 tab PO Q12HR #40 tab 09/08/18 DS 800-160 mg] Sulfamethox-Tmp 800-160Mg [Bactrim 1 tab PO Q12HR #20 tab 11/08/18 DS 800-160 mg] Sulfamethoxazole/Trimethoprim 1 each PO BID #20 tablet 05/30/19 [Bactrim DS 800-160 mg] Artificial Tears Ointment 1 gm OPHTHALMIC DAILY #1 oint...g. 06/19/19 [Lubrifresh Pm Ointment] Artificial Tears-Hypromellose 1 drops LEFT EYE QID #1 bottle 06/19/19 [Artificial Tear Drops] predniSONE [Deltasone] 60 mg PO DAILY 7 Days #21 tab 06/19/19 valACYclovir HCL [Valtrex] 1,000 mg PO TID 7 Days #7 tablet 06/19/19 Cephalexin [Keflex] 500 mg PO Q6HR #40 cap 01/09/21 Sulfamethox-Tmp 800-160Mg [Bactrim 2 tab PO BID #40 tab 01/09/21 DS 800-160 mg] Allergies Allergy/AdvReac Type Severity Reaction Status Date / Time No Known Allergies Allergy Verified 06/10/20 16:44 Review of Systems ROS Statement: Those systems with pertinent positive or pertinent negative responses have been documented in the HPI. ROS Other: All systems not noted in ROS Statement are negative. 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 History of Any Multi-Drug Resistant Organisms: None Reported Past Surgical History: Ear Surgery, Orthopedic Surgery Additional Past Surgical History / Comment(s): thumb surgery Past Anesthesia/Blood Transfusion Reactions: No Reported Reaction Past Psychological History: ADD/ADHD, Anxiety Smoking Status: Current every day smoker Past Alcohol Use History: Occasional, Rare Past Drug Use History: Marijuana - Past Family History Mother Family Medical History: Cancer General Exam Limitations: no limitations General appearance: alert, in no apparent distress Head exam: Present: atraumatic, normocephalic, normal inspection Eye exam: Present: normal appearance, PERRL, EOMI. Absent: scleral icterus, conjunctival injection, periorbital swelling ENT exam: Present: normal exam, mucous membranes moist Neck exam: Present: normal inspection. Absent: tenderness, meningismus, lymphadenopathy Respiratory exam: Present: normal lung sounds bilaterally. Absent: respiratory distress, wheezes, rales, rhonchi, stridor Cardiovascular Exam: Present: regular rate, normal rhythm, normal heart sounds. Absent: systolic murmur, diastolic murmur, rubs, gallop, clicks GI/Abdominal exam: Present: soft, normal bowel sounds, other (2 abscesses anteriorly with surrounding cellulitis). Absent: distended, tenderness, guarding, rebound, rigid Extremities exam: Present: normal inspection, full ROM, normal capillary refill. Absent: tenderness, pedal edema, joint swelling, calf tenderness Back exam: Present: normal inspection Neurological exam: Present: alert, oriented X3, CN II-XII intact Psychiatric exam: Present: normal affect, normal mood Skin exam: Present: warm, dry, intact, normal color. Absent: rash Course Vital Signs 01/09/21 04:21 Temperature 98 F Pulse Rate 92 Respiratory 18 Rate Blood Pressure 144/92 O2 Sat by Pulse 96 Oximetry - Reevaluation(s) Reevaluation #1: Medical record is reviewed Patient does feel improved with pain of abscesses and drainage Patient informed results and questions are answered Patient able tolerate antibiotics Procedures - Incision & Drainage Consent Obtained: verbal consent Site: abdomen Anesthetic Used: lidocaine 1%, with epi I&D Cleaning Method: Chloroprep Sterile Field Used?: Yes Scalpel Used: #11 Needle Aspiration Performed?: No Irrigation Performed?: Yes I&D Drainage Obtained: Pus Culture Obtained?: No Patient Tolerated Procedure: well Medical Decision Making - Medical Decision Making 30 female to ER with bilateral abdominal abscesses which are incised and drained here in the ER, patient is placed on antibiotics and she will be discharged home Disposition Clinical Impression: Abscess, Abdominal abscess, Hidradenitis suppurativa Disposition: HOME SELF-CARE Condition: Good Instructions (If sedation given, give patient instructions): Abscess Incision and Drainage (ED), Abscess (ED) Prescriptions: Sulfamethox-Tmp 800-160Mg [Bactrim DS 800-160 mg] 2 tab PO BID #40 tab Cephalexin [Keflex] 500 mg PO Q6HR #40 cap Is patient prescribed a controlled substance at d/c from ED?: No Referrals: Alfa Ford III, MD [Primary Care Provider] - 1-2 days
== END 2021-01-09 05:42 | disposition home or self-care (01) ==
LOC: EC 04:20
DX: L02.211 Cutaneous abscess of abdominal wall (principal); L73.2 Hidradenitis suppurativa; F17.200 Nicotine dependence, unspecified, uncomplicated; J45.909 Unspecified asthma, uncomplicated; F12.90 Cannabis use, unspecified, uncomplicated
CPT/HCPCS: 10061; 99283

== ENCOUNTER → 2022-10-04 | Outpatient (CLI) | payer OTHER ==
--- NOTE | 2022-10-04 10:11 | CT ---
EXAMINATION TYPE: CT iac w con CT DLP: 283 mGycm, Automated exposure control for dose reduction was used. DATE OF EXAM: 10/04/2022 9:13 AM INDICATION: Patient age:Female; 32 years old; Reason for study: H91.8X2, H71.02; COMPARISON: 11/12/2012. TECHNIQUE: Multiple thin axial images were obtained through the temporal bones and internal auditory canals. Additional coronal reformatted images were obtained. CT Contrast: Contrast used:100 ml mL of Isovue 300 with IV Contrast. FINDINGS: Right Temporal Bone: External Ear: The external auditory canal is unremarkable, The tympanic membrane is present and unrem arkable. Middle Ear: Opacification of the middle ear and around the ossicles. The ossicles demonstrate a norm al appearance. Prussak's space is clear and the scutum is intact. There is no evidence of osseous er osion and the tegmen tympani is intact. Inner Ear: Cochlea, vestibule and semi circular canals are unremarkable. No evidence of carotid jayesh l dehiscence. Two and a half turns of the cochlea are identified. The vestibular aqueduct is not enl arged. Mastoid Air Cells: The mastoid air cells are opacified. The tegmen mastoideum is intact. The aditus a d antrum is opacified. Internal Auditory Canal: The internal auditory canal is unremarkable. Left Temporal Bone: External Ear: The external auditory canal is unremarkable, The tympanic membrane is present and unrem arkable. Middle Ear: Opacification of the middle ear and around the ossicles. The ossicles demonstrate a norm al appearance. Prussak's space is clear and the scutum is intact. There is no evidence of osseous er osion and the tegmen tympani is intact. Inner Ear: Cochlea, vestibule and semi circular canals are unremarkable. No evidence of carotid jayesh l dehiscence. Two and a half turns of the cochlea are identified. The vestibular aqueduct is not enl arged. Mastoid Air Cells: The mastoid air cells are opacified with postsurgical change extending laterally i nto the temporal bone. The tegmen mastoideum is intact and appears thin compared to the contralateral side. The aditus ad antrum is opacified. Internal Auditory Canal: The internal auditory canal is unremarkable. Other: The globes extend anteriorly compatible with exophthalmos. There is thickening of the inferior rectus ocular muscle bilaterally left greater than right. IMPRESSION: 1. Bilateral mastoid air cell effusion and middle ear effusions with soft tissue/fluid around the os sicles. This is worsened from 2013 where they were relatively clear and well pneumatized. 2. Bilateral exophthalmos. Correlate with thyroid serum markers.
== END | disposition home or self-care (01) ==
LOC: RADCTMAIN 08:30
PROVIDERS: ATTEND Family Medicine
DX: H91.8X2 Other specified hearing loss, left ear (principal); H71.02 Cholesteatoma of attic, left ear; H05.20 Unspecified exophthalmos
CPT/HCPCS: 70481; Q9967